=== PATIENT | male | born 1950 | race Two or more races ===

== ENCOUNTER 2022-11-19 06:28 | Day surgery (SDC) | payer OTHER | END 2022-11-19 12:30 | disposition home or self-care (01) | LOC: AMB-ENDOS 06:28 | PROVIDERS: ATTEND Colon & Rectal Surgery | DX: K57.30 Diverticulosis of large intestine without perforation or abscess without bleeding (principal); D37.4 Neoplasm of uncertain behavior of colon; K64.8 Other hemorrhoids; R19.4 Change in bowel habit; Z20.822 Contact with and (suspected) exposure to COVID-19 ==